=== PATIENT | female | born 1980 | race Caucasian/White ===

== ENCOUNTER → 2016-11-18 | Outpatient (CLI) | payer BC ==
[2016-11-19 04:38] LABS: Thyroid Peroxidase (TPO) Ab 7 IU/mL (0-34)
[2016-11-19 14:40] LABS: Thyroglobulin Antibody <1.0 IU/mL (0.0-0.9)
== END ==
LOC: LAB 09:17
PROVIDERS: Otolaryngology
DX: E01.0 Iodine-deficiency related diffuse (endemic) goiter (principal)